=== PATIENT | female | born 1990 | race African-American/Black ===

== ENCOUNTER 2016-12-09 05:01 | Emergency (ER) | payer MEDICAID ==
[~2016-12-09] VITALS: Ht 152.4 cm; Wt 67.0 kg
[2016-12-09 05:40] VITALS: BP 119/79
[2016-12-09] MEDS ORDERED: DIPHENHYDRAMINE 25MG CAPSULE PO ONE (06:45)
== END 2016-12-09 07:31 | disposition home or self-care (01) ==
LOC: ER 05:01
DX: L29.9 Pruritus, unspecified (principal); L30.9 Dermatitis, unspecified
CPT/HCPCS: 99283; Q0163